=== PATIENT | female | born 1995 | race Caucasian/White ===

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

== ENCOUNTER 2017-01-03 15:40 | Outpatient (CLI) | payer MEDICAID ==
[2017-01-03 16:17] LABS: APPEARANCE,URINE SLIGHTLY-CLOUDY; BILIRUBIN,URINE NEGATIVE (NEGATIVE); GLUCOSE, URINE NEGATIVE (NEGATIVE); KETONES,URINE NEGATIVE (NEGATIVE); LEUKOCYTE ESTERASE,URINE NEGATIVE (NEGATIVE); NITRITE,URINE NEGATIVE (NEGATIVE); PROTEIN,URINE NEGATIVE (NEGATIVE); URINE SPECIFIC GRAVITY 1.004; UROBILINOGEN,URINE NEGATIVE mg/dL (<2.0)
[2017-01-03 16:23] LABS: AMNISURE (ROM) NEGATIVE (NEGATIVE)
[2017-01-03 16:32] LABS: URINE BARBITURATES SCREEN NEGATIVE; URINE METHADONE SCREEN NEGATIVE; URINE OPIATES LOW NEGATIVE; URINE PHENCYCLIDINE SCREEN NEGATIVE
== END 2017-01-03 17:00 | disposition home or self-care (01) ==
LOC: LC 15:40
PROVIDERS: ATTEND Obstetrics & Gynecology
PROC: 4A1HXCZ Monitoring of Products of Conception, Cardiac Rate, External Approach (ICD-10-PCS; principal; 2017-01-03)
DX: O47.1 False labor at or after 37 completed weeks of gestation (principal); Z3A.37 37 weeks gestation of pregnancy
CPT/HCPCS: 80307; 81005; 84112

== ENCOUNTER 2017-01-06 17:38 | Outpatient (CLI) | payer MEDICAID | END 2017-01-06 18:28 | disposition home or self-care (01) | LOC: LC 17:38 | PROVIDERS: ATTEND Obstetrics & Gynecology | PROC: 4A1HXCZ Monitoring of Products of Conception, Cardiac Rate, External Approach (ICD-10-PCS; principal; 2017-01-06) | DX: O47.1 False labor at or after 37 completed weeks of gestation (principal); Z3A.37 37 weeks gestation of pregnancy | CPT/HCPCS: 59025 ==

== ENCOUNTER 2017-01-23 21:49 | Outpatient (CLI) | payer MEDICAID ==
[2017-01-23 22:18] LABS: APPEARANCE,URINE SLIGHTLY-CLOUDY; BILIRUBIN,URINE NEGATIVE (NEGATIVE); GLUCOSE, URINE NEGATIVE (NEGATIVE); KETONES,URINE NEGATIVE (NEGATIVE); LEUKOCYTE ESTERASE,URINE NEGATIVE (NEGATIVE); NITRITE,URINE NEGATIVE (NEGATIVE); PROTEIN,URINE NEGATIVE (NEGATIVE); URINE SPECIFIC GRAVITY 1.008; UROBILINOGEN,URINE NEGATIVE mg/dL (<2.0)
[2017-01-23 22:33] LABS: URINE BARBITURATES SCREEN NEGATIVE; URINE METHADONE SCREEN NEGATIVE; URINE OPIATES LOW NEGATIVE; URINE PHENCYCLIDINE SCREEN NEGATIVE
--- NOTE | 2017-01-24 03:11 | Non Stress Test Report ---
Non Stress Test Datetime Report Generated by CPN: 01/24/2017 03:11 DEMOGRAPHIC EGA NST: 40.1 INDICATION Indication for Study: Other Indication for Study (NST) Other: labor check URINE RESULTS Urine Protein, NST: Negative Urine Ketones - NST: Negative Urine Glucose - NST: Negative Urine Blood - NST: Negative MONITORING Monitor Explained: Monitor Explained; Test Explained; Patient Verbalized Understanding Time on Monitor: 01/23/2017 22:01 Time off Monitor: 01/23/2017 23:58 NST Duration: 117 NST INTERVENTIONS NST Interventions: PO Hydration; Other NST Interventions Other: popsicle Physician Notified NST: Dr. Britton BABY A Movement : Present (Annotations: Data stored by [facility] on behalf of user) Movement : Present Contraction Frequency : 1.5-8 FHR Baseline : 140 Accelerations : 15X15 Decelerations : None Variability : Moderate 6-25bpm NST Review: Meets Criteria for Reactive NST NST Review and Verified By : Stevie Tobar RN NST Results: Reactive NST REPORT Report Trigger: Send Report
== END 2017-01-24 00:16 | disposition home or self-care (01) ==
LOC: LC 21:49
PROVIDERS: ATTEND Student in an Organized Health Care Education/Training Program
PROC: 4A1HXCZ Monitoring of Products of Conception, Cardiac Rate, External Approach (ICD-10-PCS; principal; 2017-01-23)
DX: O48.0 Post-term pregnancy (principal); Z3A.40 40 weeks gestation of pregnancy
CPT/HCPCS: 59025; 80307; 81005

== ENCOUNTER 2017-01-24 03:10 | Inpatient (IN) | payer MEDICAID ==
[2017-01-24] MEDS ORDERED: PENICILLIN G POTASSIUM 5,000,000 UNIT in DEXTROSE 5%-WATER 100 ML IV ONE (03:22)
[2017-01-24] MEDS ORDERED: PENICILLIN G-K 5 MILLION UNIT VIAL ONE ×3 (03:23→11:36)
[2017-01-24 03:58] LABS: HEMATOCRIT 33.8 % (36.0-47.0); HEMOGLOBIN 11.8 g/dL (12.0-15.5); HGB HCT DIFFERENCE 1.6; MEAN CORPUSCULAR HEMOGLOBIN 30.8 pg (27.0-33.4); MEAN CORPUSCULAR HGB CONC 34.9 g/dL (32.0-36.0); MEAN CORPUSCULAR VOLUME 88 fl (80-97); RED BLOOD COUNT 3.84 10^6/uL (3.72-5.28); RED CELL DISTRIBUTION WIDTH 13.5 % (11.5-14.0)
[2017-01-24] MEDS: RINGERS SOLUTION,LACTATED 1,000 ML IV PRN ×3 (04:15→19:23)
[2017-01-24 04:19] LABS: BASOPHILS % (MANUAL) 1 % (0-2); EOSINOPHILS % (MANUAL) 0 % (0-6); LYMPHOCYTES % (MANUAL) 11 % (13-45); TOTAL CELLS COUNTED 100
[2017-01-24 04:21] LABS: PLATELET CLUMPS PRESENT; POIKILOCYTOSIS SLIGHT; POLYCHROMASIA SLIGHT
[2017-01-24] MEDS ORDERED: FENTANYL/BUPIVACAINE/NS/PF 200 MCG/100 ML RTUINJ EPI ONE (06:11)
[2017-01-24] MEDS ORDERED: EPHEDRINE SULFATE INJ 50 MG/1 ML AMPULE ONE (06:11)
[2017-01-24] MEDS ORDERED: PHENYLEPHRINE HCL INJ/PF 10 MG/1 ML SDV ONE (06:11)
[2017-01-24] MEDS ORDERED: FENTANYL CITRATE INJ/PF 100 MCG/2 ML AMPUL ONE (06:11)
[2017-01-24] MEDS ORDERED: BUPIVACAINE HCL 0.25 % INJ/PF (2.5 MG/1 ML) 30 ML VIAL ONE (06:12)
[2017-01-24] MEDS ORDERED: PENICILLIN G POTASSIUM 2,500,000 UNIT in DEXTROSE 5%-WATER 50 ML IV SCH (07:22)
[2017-01-24] MEDS ORDERED: OXYTOCIN/NORMAL SALINE 1,000 ML IV PRN ×3 (07:54→17:39)
[2017-01-24] MEDS ORDERED: LIDOCAINE 1% INJ-PF (10 MG/ML) 30 ML SDV INJ ONE (07:56)
[2017-01-24] MEDS ORDERED: MISOPROSTOL 0.2 MG TABLET PR ONE (07:57)
[2017-01-24] MEDS ORDERED: LIDOCAINE 1% INJ-PF (10 MG/ML) 30 ML SDV INJ PRN (07:58)
[2017-01-24] MEDS ORDERED: MISOPROSTOL 0.2 MG TABLET PR PRN (07:58)
[2017-01-24] MEDS ORDERED: OXYTOCIN/NORMAL SALINE 20 UNIT/1,000 ML RTUINJ ONE ×2 (09:00→16:28)
[2017-01-24] MEDS: PENICILLIN G POTASSIUM 2,500,000 UNIT in DEXTROSE 5%-WATER 50 ML IV SCH ×3 (09:03→18:22)
[2017-01-24] MEDS ORDERED: MAGNESIUM SULFATE 0 GM/0 ML RTUPB IV ONE (12:21)
[2017-01-24] MEDS ORDERED: BETAMET ACET/BETAMET NA INJ 6 MG/1 ML ONE (12:27)
[2017-01-24] MEDS ORDERED: MISOPROSTOL 0.2 MG TABLET ONE (12:41)
[2017-01-24] MEDS ORDERED: LIDOCAINE 1% INJ-PF (10 MG/ML) 30 ML SDV ONE (12:41)
[2017-01-24] MEDS ORDERED: CEFAZOLIN 2 GM/D5W RTU 2 GM/50 ML RTUPB IV ONE (16:05)
[2017-01-24] MEDS ORDERED: CITRIC ACID/SODIUM CITRATE ORAL SOLN 15 ML UDCUP ONE (16:05)
[2017-01-24] MEDS ORDERED: CITRIC ACID/SODIUM CITRATE ORAL SOLN 15 ML UDCUP PO ONE (16:07)
[2017-01-24] MEDS ORDERED: CEFAZOLIN 2 GM/D5W RTU 50 ML IV ONE (16:07)
[2017-01-24] MEDS ORDERED: LIDOCAINE 2%/EPINEPHRINE INJ 20 ML VIAL ONE (16:09)
[2017-01-24] MEDS ORDERED: SODIUM BICARBONATE 8.4% INJ 50 MEQ/50 ML DISP.SYRIN ONE (16:14)
[2017-01-24] MEDS ORDERED: OXYTOCIN 10 UNIT/ML VIAL ONE (16:28)
[2017-01-24] MEDS ORDERED: MIDAZOLAM 2 MG/2 ML INJ ONE (16:28)
[2017-01-24] MEDS ORDERED: MORPHINE SULFATE 10 MG/ML INJ ONE (16:29)
[2017-01-24] MEDS ORDERED: MEASLES,MUMPS&RUBELLA VACC/PF 0.5 ML VIAL SUBCUT PRN (17:39)
[2017-01-24] MEDS ORDERED: SIMETHICONE 80 MG TAB.CHEW PO PRN (17:39)
[2017-01-24] MEDS ORDERED: ACETAMINOPHEN 100 ML IV PRN (17:39)
[2017-01-24] MEDS ORDERED: OXYCODONE-ACETAMINOPHEN 5-325 MG TABLET PO PRN (17:39)
[2017-01-24] MEDS ORDERED: MORPHINE SULFATE 10 MG/ML INJ IV PRN (17:39)
[2017-01-24] MEDS ORDERED: ACETAMINOPHEN 325 MG TABLET PO PRN (17:39)
[2017-01-24] MEDS ORDERED: PROMETHAZINE HCL INJ 25 MG/1 ML VIAL IV PRN (17:39)
--- NOTE | 2017-01-24 18:09 | OPERATIVE REPORT E ---
Operative Report NAME: MINI SQUIRES : 1995 AGE: 21Y DATE OF SURGERY: 01/24/2017 ROOM: LR200 PREOPERATIVE DIAGNOSIS: 1. Intrauterine at 40 weeks 2 days. 2. Failure to descend. POSTOPERATIVE DIAGNOSIS: 1. Intrauterine at 40 weeks 2 days. 2. Failure to descend. OPERATION: Low transverse hysterotomy section SURGEON: KEL ARORA M.D. ANESTHESIA: Dr. Montemayor with epidural. FINDINGS: Female in cephalic presentation with Apgars of 9 at one minute and 9 at five minutes, weight 7 pounds 14 ounces. Vaginal hand required for delivery. COMPLICATIONS: None. ESTIMATED BLOOD LOSS: 700 mL. SPECIMENS REMOVED: None. PROCEDURE: The patient was taken to the operating room, prepared and draped in a normal sterile fashion in supine position with a leftward tilt. A transverse skin incision was made with a scalpel and carried through to underlying layer of fascia with the same scalpel. The fascia was excised in the midline and extended laterally with Mayos. The rectus muscle and peritoneum were divided bluntly with good visualization of the bladder and the uterus. The bladder blade was inserted, and the hysterotomy was nicked with a scalpel and extended laterally with surgeon finger fracture. Attempt to deliver the baby at that point was unsuccessful so vaginal hand was requested and performed. This facilitated lifting the baby back into the fundus of the uterus; however, the fetus was still unable to be delivered despite adequate pressure. Therefore, a Kiwi vacuum was applied x1, and this facilitated delivery of the infant's head. The rest of the was then delivered without difficulty. The nose and mouth were suctioned with a suction bulb, and the cord was clamped and cut, and the infant was handed off to awaiting pediatricians. The cord blood was collected, and the placenta was removed manually. The uterus was exteriorized, cleared of clots and debris. The hysterotomy was closed with 0 Monocryl in a running locked fashion. A second layer of the same suture was used to imbricate to insure hemostasis. The uterus was then returned to the abdomen, and the peritoneal cavity was cleared of clots and debris. The rectus muscle and peritoneum were reapproximated with mattress stitch of 2-0 chromic. The fascia was then closed with 0 Vicryl. The subcutaneous layer was closed with plain catgut, and the skin was closed with 4-0 Vicryl. The patient tolerated the procedure well. Sponge, lap, and needle counts were correct x2. The patient was taken to recovery in stable condition. DICTATING PHYSICIAN: KEL ARORA M.D. [id number] PHY#: [id number] ID: [id number] JOB#: [id number] ACCT: [id number] cc:KEL ARORA M.D. > MTDD
[2017-01-24] MEDS: IBUPROFEN 800 MG TABLET PO SCH ×2 (18:22→23:27)
[2017-01-24] MEDS: DOCUSATE SODIUM 100 MG CAPSULE PO SCH (18:22)
[2017-01-24] MEDS ORDERED: ACETAMINOPHEN 100 ML IV ONE (18:36)
--- NOTE | 2017-01-24 18:55 | Delivery Summary ---
Del Sum A-C Datetime Report Generated by CPN: 01/24/2017 18:54 DELIVERY PERSONNEL DELIVERY PERSONNEL: [id number] Delivery Doctor:: Tammy Wolfe MD Anesthesiologist:: Carol Montemayor MD INTERIOR DESIGN TEACHER:: José Miguel Johnson CRNA Labor and Delivery Nurse:: Luz Elena Sanchez RNsilverlight developer Nurse:: Armida Angulo RN Neonatal Nurse Practitioner:: ALYSHA Ott Nursery Nurse:: Joanie oDzier RN Injection Specialist/GERIATRICIAN: Nadege Juan GINNING OPERATOR Injection Specialist/GERIATRICIAN: Tanner Ríos GINNING OPERATOR MATERNAL INFORMATION Delivery Anesthesia: Epidural Medications After Delivery: Pitocin Drip 20 Units/1000ml NSS Estimated Blood Loss (ml): 500 Maternal Complications: None LABOR SUMMARY EDC: 01/22/2017 00:00 No. Babies in Womb: 1 Attempted: No Labor Anesthesia: Epidural LABOR INFORMATION Reason for Induction: Not Applicable Onset of Labor: 01/24/2017 03:00 Complete Dilatation: 01/24/2017 13:13 Oxytocin: Augmentation Group B Beta Strep: Positive Antibiotics # of Doses: 3 Antibiotics Time of Last Dose: 1200 Name of Antibiotic Given: PCN Steroids Given: None Reason Steroids Not Administered: Not Applicable MEMBRANES Membranes Rupture Method: Spontaneous Rupture of Membranes: 01/24/2017 03:00 Length of Rupture (hr): 13.85 Amniotic Fluid Color: Clear Amniotic Fluid Amount: Moderate Amniotic Fluid Odor: Normal STAGES OF LABOR Stage 1 hr: 10 Stage 1 min: 13 Stage 2 hr: 3 Stage 2 min: 38 Stage 3 hr: 0 Stage 3 min: 1 Total Time in Labor hr: 13 Total Time in Labor min: 52 CSECTION DELIVERY Primary Indication: Arrest of Descent CSection Urgency: Non-Scheduled CSection Incidence: Primary Labor: Labor Elective: Nonelective CSection Incision: Lower Uterine Transverse BABY A INFORMATION Infant Delivery Date/Time: 01/24/2017 16:51 Method of Delivery: Born in Route : No : N/A Forceps: N/A Vacuum Extraction: Successful Shoulder Dystocia : No PRESENTATION/POSITION BABY A Presentation: Cephalic Cephalic Presentation: Vertex Vertex Position: Right Occipital Posterior Breech Presentation: N/A PLACENTA INFORMATION BABY A Placenta Delivery Time : 01/24/2017 16:52 Placenta Method of Delivery: Spontaneous Placenta Status: Delivered SCORES BABY A Heart Rate 1 min: >100 bpm Resp Effort 1 min: Good Cry Reflex Irritability 1 min: Cough or Sneeze or Pulls Away Muscle Tone 1 min: Active Motion Color 1 min: Body [place], Extremities Blue Resuscitation Effort 1 min: Tactile Stimulation SCORE 1 MIN: 9 Heart Rate 5 min: >100 bpm Resp Effort 5 min: Good Cry Reflex Irritability 5 min: Cough or Sneeze or Pulls Away Muscle Tone 5 min: Active Motion Color 5 min: Body [place], Extremities Blue Resuscitation Effort 5 min: Tactile Stimulation SCORE 5 MIN: 9 INFORMATION BABY A Gestational Age at Delivery: 40.2 Gestational Status: Full Term- 39- 40.6 Weeks Infant Outcome : Liveborn Condition : Stable Sex: Female IDENTIFICATION BABY A Infant Verification Date/Time: 01/24/2017 16:47 ID Band Number: [id number] Mother's Name Verified: Yes RN Verifying Infant: Drew Mai, RN Additional Verifying Personnel: Madeline Sanchez RN WEIGHT/LENGTH BABY A Infant Birthweight (gm): 3565 Weight (lb): 7 Weight (oz): 14 Infant Length (in): 20.50 Length (cm): 52.07 CORD INFORMATION BABY A No. Cord Vessels: 3 Nuchal Cord : N/A Cord Blood Taken: Yes-For Eval (Mom's Blood Type - or O+) Suction: Mouth; Nose ASSESSMENT BABY A Complications: None Physical Findings at Delivery: Within Normal Limits; Molding of the Head Infant Respirations: Appears Normal Skin to Skin: Yes Pet Nutrition Specialist/ALS Called : No Care By: Cat Dozier RN _ S [place] DIRECTOR SALES SUPPORT Transferred To: Nursery BABY B INFORMATION : N/A
--- NOTE | 2017-01-24 20:03 | Admission Physical ---
Datetime Report Generated by CPN: 01/24/2017 20:03 CURRENT ADMISSION Chief Complaint: Suspected Ruptured Membranes Admit Plan: Admit to Unit; Initiate Labor Induction Protocol ALLERGIES Medication Allergies: No Medication Allergies: No Known Drug Allergies (01/24/2017); milk (01/24/2017) Medication Allergies: No Known Drug Allergies (10/01/2016); milk (10/01/2016) Latex: No Latex Allergies Food Allergies: None Environmental Allergies: None OBSTETRICAL HISTORY EDC: 01/22/2017 00:00 : 1 Para: 0 Term: 0 : 0 SAB: 0 IAB: 0 Ectopic: 0 Livin Cesareans: 0 VBACs: 0 Multiple Births: 0 Gestational Diabetes: No Rh Sensitization: No Incompetent Cervix: No SANDY: No Infertility: No ART Treatment: No Uterine Anomaly: No IUGR: No Hx Previous C/S: No Macrosomia: No Hx Loss/Stillborn: No PIH: No Hx : No Placenta Previa/Abruption: No Depression/PP Depression: No PTL/PROM: No Post Hemorrhage: No Current Procedures: Ultrasound; NST Obstetrical History Comments: G1 - current; Polyhydramnios SEE RECORDS Alcohol: No Marijuana : No Cocaine: No Other Illicit Drugs: No Cigarettes: Current Everyday Smoker. [id number] Cigarette Frequency: 5 - 10 per day Advised to Stop: Yes MEDICAL HISTORY Diabetes: No Blood Transfusion: No Pulmonary Disease (Asthma, TB): No Breast Disease: No Hypertension: No Public School Teacher Surgery: No Heart Disease: No Hosp/Surgery: Yes Autoimmune Disorder: No Anesthetic Complications: No Kidney Disease: No Abnormal Pap Smear: No Neuro/Epilepsy: No Psychiatric Disorders: No Other Medical Diseases: No Hepatitis/Liver Disease: No Significant Family History: No Varicosities/Phlebitis: No Trauma/Violence : No Thyroid Dysfunction: No Medical History Comments: ovarian cysts, dislocated shoulder INFECTIOUS HISTORY Gonorrhea: No Genital Herpes: No Chlamydia: No Tuberculosis: No Syphilis: No Hepatitis: No HIV/AIDS Exposure: No Rash or Viral Illness: No HPV: No Infectious History Comments: denies PHYSICAL EXAM General: Normal HEENT: Normal Neurologic: Normal Thyroid: Normal Heart: Normal Lungs: Normal Breast: Deferred Back: Normal Abdomen: Normal Genitourinary Exam: Normal Extremities: Normal DTRs: Normal Pelvic Type: Adequate Vital Signs: Reviewed; Within Normal Limits VAGINAL EXAM Dilatation: 1 Effacement: 25 Station: -3 MEMBRANES Pooling: Positive Ferning Results: Positive Membranes: Ruptured Amniotic Fluid Color: Clear FETUS A EGA: 40.2 FHR- Baseline: 120 Accelerations: 15X15 Decelerations: None Presentation: Vertex Admit Comment: 21yo at 40+2ega presents for PROM at 0300 this am. Clear fluid. GBS pos. c/b polyhydramnios and smoker. She is Rh negative. PCN for GBS prophy. Plan for pitocin for IOL - now /-2. Epidural upon pt request. AnticiapteSVD. EFW 7.5#. Vtx on bedside US. PLANS FOR LABOR AND DELIVERY Labor and Delivery: None Pain Management: Epidural Feeding Preference: Breast Benefit of Breast Feed Discussed: Yes Circumcision: N/A INFORMED CONSENT Informed Consent Obtained: Vaginal Delivery; Induction of Labor; Risks, Benefits and Alternatives Discussed Signature: with User ID: [email or web address]
[2017-01-24] MEDS: KETOROLAC TROMETHAMINE INJ/PF 30 MG/1 ML SDV IV SCH (21:12)
[2017-01-24] MEDS: OXYCODONE-ACETAMINOPHEN 5-325 MG TABLET PO PRN (23:16)
[2017-01-25] MEDS: RINGERS SOLUTION,LACTATED 1,000 ML IV PRN (02:07)
[2017-01-25] MEDS: IBUPROFEN 800 MG TABLET PO SCH ×2 (02:12→21:02)
[2017-01-25] MEDS: KETOROLAC TROMETHAMINE INJ/PF 30 MG/1 ML SDV IV SCH ×2 (05:27→14:56)
[2017-01-25 06:41] LABS: HEMATOCRIT 25.5 % (36.0-47.0); HGB HCT DIFFERENCE 0.3; MEAN CORPUSCULAR HEMOGLOBIN 30.7 pg (27.0-33.4); MEAN CORPUSCULAR HGB CONC 33.7 g/dL (32.0-36.0); MEAN CORPUSCULAR VOLUME 91 fl (80-97); RED BLOOD COUNT 2.79 10^6/uL (3.72-5.28); RED CELL DISTRIBUTION WIDTH 14.1 % (11.5-14.0); WHITE BLOOD COUNT 20.4 10^3/uL (4.0-10.5)
[2017-01-25 07:21] LABS: HEMOGLOBIN 8.6 g/dL (12.0-15.5)
[2017-01-25] MEDS: DOCUSATE SODIUM 100 MG CAPSULE PO SCH ×2 (09:12→19:21)
[2017-01-25] MEDS: PRENATAL VITAMIN W-O CA NO5/FE FUMARATE/FA CAPSULE PO SCH (09:13)
[2017-01-25] MEDS: OXYCODONE-ACETAMINOPHEN 5-325 MG TABLET PO PRN ×2 (10:50→22:54)
[2017-01-26] MEDS: IBUPROFEN 800 MG TABLET PO SCH ×2 (01:58→08:15)
--- NOTE | 2017-01-26 08:53 | PDOC PROGRESS REPORT ---
Subjective-OB Subjective: Post Delivery Day: 21 year old. Denies any needs at this time. Ready to go home. Physical Exam (OB) Vital Signs: Temp Pulse Resp BP Pulse Ox 97.8 F 84 20 101/62 99 01/26/17 07:24 01/26/17 07:24 01/26/17 07:24 01/26/17 07:24 01/26/17 07:24 Intake & Output 01/25/17 01/26/17 01/27/17 06:59 06:59 06:59 Intake Total 1500 675 Output Total 1150 950 Balance 350 -275 - PIH/Pre-Eclampsia Clonus: Negative - Dressing Removed: No Incision: Dressing - Lochia Lochia Amount: Scant < 10 ml Lochia Color: Rubra/Red - Abdomen Description: Tender, Soft, Round Hernia Present: No Bowel Sounds: Normoactive Flatus Presence: Present Stool: No Fundal Description: Firm, Midline Fundal Height: u/u - u/2 Objective-Diagnostic Laboratory: 01/25/17 06:22 01/25/17 06:22 Blood Type A NEGATIVE
--- NOTE | 2017-01-26 09:00 | PDOC DISCHARGE SUMMARY ---
Final Diagnosis Discharge Date: 01/26/17 - Final Diagnosis (1) Arrest of descent, delivered, current hospitalization Is this a current diagnosis for this admission?: Yes (2) Delivery by emergency caesarean section Is this a current diagnosis for this admission?: Yes (3) Positive GBS test Is this a current diagnosis for this admission?: Yes (4) Is this a current diagnosis for this admission?: Yes Discharge Data - Discharge Medication Home Medications: [id number]/Iron Fumarate/FA/Dss [ 19 Tablet] 1 tab PO DAILY 01/03/17 Docusate Sodium [Colace 100 mg Capsule] 100 mg PO BID #30 capsule 01/26/17 Ferrous Sulfate 325 mg PO BID #60 tablet. 01/26/17 Ibuprofen [Motrin 800 mg Tablet] 800 mg PO Q6H #30 tablet 01/26/17 Oxycodone HCl/Acetaminophen [Percocet 5-325 mg Tablet] 1 tab PO Q4HP PRN #20 tablet 01/26/17 Gestational Age: 40.2 wks Reason(s) for Admission: Onset of Labor Procedures: NST, Ultrasound Intrapartum Procedure(s): : Low Cervical, Transverse - Data Baby 1 Female at 1 minute: 9 at 5 minutes: 9 Weight: 3.572 kg Home with Mother: Yes Complications: No - Diagnosis Test Laboratory: Temp Pulse Resp BP Pulse Ox 97.8 F 84 20 101/62 99 01/26/17 07:24 01/26/17 07:24 01/26/17 07:24 01/26/17 07:24 01/26/17 07:24 01/24/17 01/25/17 03:40 06:22 RBC 3.84 2.79 L Hgb 11.8 L 8.6 L D Hct 33.8 L 25.5 L - Discharge information/Instructions Discharge Activity: Activity As Tolerated, Balance Activity w/Rest, Pelvic Rest , Slowly Increase Activity, No tub bath Discharge Diet: Regular Disposition: HOME, SELF-CARE Follow up with: [facility] in: 1, Weeks
[2017-01-26] MEDS: PRENATAL VITAMIN W-O CA NO5/FE FUMARATE/FA CAPSULE PO SCH (09:53)
[2017-01-26] MEDS: DOCUSATE SODIUM 100 MG CAPSULE PO SCH (09:53)
[2017-01-26 10:27] VITALS: BP 116/75
[2017-01-26] MEDS ORDERED: DIPH/PERTUSS(ACELL)/TETANUS VAC/PF 0.5 ML SYR (>=10YO) IM ONE (12:00)
== END 2017-01-26 12:10 | disposition home or self-care (01) | DRG 765 ==
LOC: LC 03:10 → LR 03:25 → 2S 19:50
PROVIDERS: ADMIT Obstetrics & Gynecology; ATTEND Obstetrics & Gynecology
PROC: 10D00Z1 Extraction of Products of Conception, Low, Open Approach (ICD-10-PCS; principal; 2017-01-24)
PROC: 3E0234Z Introduction of Serum, Toxoid and Vaccine into Muscle, Percutaneous Approach (ICD-10-PCS; 2017-01-26)
PROC: 3E0234Z Introduction of Serum, Toxoid and Vaccine into Muscle, Percutaneous Approach (ICD-10-PCS; 2017-01-26)
DX: O62.1 Secondary uterine inertia (principal); O40.3XX0 Polyhydramnios, third trimester, not applicable or unspecified; O36.0930 Maternal care for other rhesus isoimmunization, third trimester, not applicable or unspecified; O99.334 Smoking (tobacco) complicating childbirth; O99.824 Streptococcus B carrier state complicating childbirth; F17.210 Nicotine dependence, cigarettes, uncomplicated; Z3A.40 40 weeks gestation of pregnancy; Z37.0 Single live birth; Z23 Encounter for immunization
CPT/HCPCS: 1961; 36415; 59025; 80307; 81005; 85025; 85027; 85461; 86592; 86850; 86900; 86901; 90715; 94799; J0131; J0690; J0702; J1885; J2250; J2270; J2370; J2540; J2590; J2790; J3010; J3475; J3490; J7120

== ENCOUNTER 2017-05-19 06:01 | Emergency (ER) | payer MEDICAID ==
[2017-05-19 06:27] VITALS: BP 123/74
[2017-05-19 06:32] LABS: APPEARANCE,URINE SLIGHTLY-CLOUDY; BILIRUBIN,URINE NEGATIVE (NEGATIVE); GLUCOSE, URINE NEGATIVE (NEGATIVE); KETONES,URINE NEGATIVE (NEGATIVE); LEUKOCYTE ESTERASE,URINE LARGE (NEGATIVE); NITRITE,URINE NEGATIVE (NEGATIVE); PROTEIN,URINE 30 mg/dL (NEGATIVE); URINE SPECIFIC GRAVITY 1.001; UROBILINOGEN,URINE NEGATIVE mg/dL (<2.0)
--- NOTE | 2017-05-19 07:03 | ER Document Report ---
ED GI/ - General Chief Complaint: Flank Pain Stated Complaint: LEFT SIDE PAIN Time Seen by Provider: 05/19/17 07:03 Mode of Arrival: Medic Information source: Patient Notes: 21 yo female in by EMS due to sharp intermittent left flank pain that radiates into supropubic area since wednesday morning. Flank Pain worse after urination. Frequency too. LMP 2nd week of may. PMH: C section. smoker. ruptured ovarian cyst. No vaginal discharge or odor. No hx kidney stones. UA shows 23 WBC , no RBC or bacteria. Culture and HCG ordered. No fever. No diarrhea or constipation. TRAVEL OUTSIDE OF THE [place] IN LAST 30 DAYS: No - Related Data Allergies/Adverse Reactions: No Known Drug Allergies Allergy (Verified 01/24/17 03:17) Past Medical History - General Information source: Patient - Social History Smoking Status: Current Every Day Smoker Chew tobacco use (# tins/day): No Frequency of alcohol use: Rare Drug Abuse: None Lives with: Spouse/Significant other Family History: None Renal/ Medical History: Reports: Hx Ovarian Cysts. Denies: Hx Kidney Stones, Hx Peritoneal Dialysis Other: G!P! Past Surgical History: Reports: Hx Section - Immunizations Immunizations up to date: Yes Hx Diphtheria, Pertussis, Tetanus Vaccination: Yes Review of Systems - Review of Systems Constitutional: No symptoms reported EENT: No symptoms reported Cardiovascular: No symptoms reported Respiratory: No symptoms reported Gastrointestinal: No symptoms reported Genitourinary: See HPI Female Genitourinary: No symptoms reported Musculoskeletal: No symptoms reported Skin: No symptoms reported Hematologic/Lymphatic: No symptoms reported Neurological/Psychological: No symptoms reported Physical Exam - Vital signs Vitals: Temp Pulse Resp BP Pulse Ox 98 F 75 18 123/74 100 05/19/17 06:25 05/19/17 06:25 05/19/17 06:25 05/19/17 06:25 05/19/17 06:25 Interpretation: Normal - General General appearance: Appears well, Alert - HEENT Head: Normocephalic, Atraumatic Eyes: Normal Conjunctiva: Normal Pupils: PERRL Mucous membranes: Dry Neck: Supple. No: Lymphadenopathy - Respiratory Respiratory status: No respiratory distress Chest status: Nontender Breath sounds: Normal Chest palpation: Normal - Cardiovascular Rhythm: Regular Heart sounds: Normal auscultation Murmur: No - Abdominal Inspection: Normal Distension: No distension Bowel sounds: Normal Tenderness: Tender - Left pelvis Organomegaly: No organomegaly - Back Back: Normal, Nontender. No: CVA tenderness - Extremities General upper extremity: Normal inspection, Nontender, Normal color, Normal ROM , Normal temperature General lower extremity: Normal inspection, Nontender, Normal color, Normal ROM , Normal temperature, Normal weight bearing. No: Irma's sign - Neurological Neuro grossly intact: Yes Cognition: Normal Orientation: AAOx4 Sylva Coma Scale Eye Opening: Spontaneous Ti Coma Scale Verbal: Oriented Sylva Coma Scale Motor: Obeys Commands Ti Coma Scale Total: 15 Speech: Normal Motor strength normal: LUE, RUE, LLE, RLE Sensory: Normal - Psychological Associated symptoms: Normal affect, Normal mood - Skin Skin Temperature: Warm Skin Moisture: Dry Skin Color: Normal Skin irregularity: negative: Rash Course - Re-evaluation Re-evalutation: 05/19/17 08:04 nurse went to set up the pelvic exam, pt and her spouse gone from the room. She understand the plan to do the pelvic exam and determine if she needs any imaging for pelvis or ureter. Nurse spoke with the pt, over the phone, she said she needed to get back to her 4 month old baby and her pain was gone so they left without telling anyone. 05/19/17 08:06 - Vital Signs Vital signs: Temp Pulse Resp BP Pulse Ox 98 F 75 18 123/74 100 05/19/17 06:25 05/19/17 06:25 05/19/17 06:25 05/19/17 06:25 05/19/17 06:25 - Laboratory Laboratory results interpreted by me: 05/19/17 06:05 Urine Protein 30 H Urine Blood MODERATE H Ur Leukocyte Esterase LARGE H Discharge - Discharge Clinical Impression: left flank pain Condition: Good Disposition: HOME, SELF-CARE
== END 2017-05-19 08:18 | disposition left against medical advice (07) ==
LOC: ER 06:01
DX: R10.9 Unspecified abdominal pain (principal); R35.0 Frequency of micturition; F17.200 Nicotine dependence, unspecified, uncomplicated
CPT/HCPCS: 81001; 81025; 87086; 87088; 87186; 99281

== ENCOUNTER 2017-05-21 00:54 | Emergency (ER) | payer MEDICAID ==
[2017-05-21] MEDS ORDERED: NORMAL SALINE 1000 ML 1,000 ML IV ONE (01:38)
[2017-05-21 02:03] LABS: ABSOLUTE EOSINOPHILS # (AUTO) 0.1 10^3/uL (0.0-0.6); ABSOLUTE LYMPHOCYTES (AUTO) 1.4 10^3/uL (0.5-4.7); ABSOLUTE MONOCYTES (AUTO) 1.4 10^3/uL (0.1-1.4); ABSOLUTE NEUT (AUTO) 12.1 10^3/uL (1.7-8.2); BASOPHILS % (AUTO) 0.3 % (0-2); EOSINOPHILS % (AUTO) 0.6 % (0-6); HEMOGLOBIN 12.9 g/dL (12.0-15.5); HGB HCT DIFFERENCE 0.7; LYMPHOCYTES % (AUTO) 9.1 % (13-45); MEAN CORPUSCULAR HEMOGLOBIN 30.2 pg (27.0-33.4); MEAN CORPUSCULAR HGB CONC 33.9 g/dL (32.0-36.0); MEAN CORPUSCULAR VOLUME 89 fl (80-97); MONOCYTES % (AUTO) 9.1 % (3-13); RED BLOOD COUNT 4.26 10^6/uL (3.72-5.28); RED CELL DISTRIBUTION WIDTH 13.8 % (11.5-14.0); SEGMENTED NEUTROPHILS % (AUTO) 80.9 % (42-78)
[2017-05-21 02:09] LABS: APPEARANCE,URINE SLIGHTLY-CLOUDY; BILIRUBIN,URINE NEGATIVE (NEGATIVE); GLUCOSE, URINE NEGATIVE (NEGATIVE); KETONES,URINE TRACE mg/dL (NEGATIVE); LEUKOCYTE ESTERASE,URINE SMALL (NEGATIVE); NITRITE,URINE NEGATIVE (NEGATIVE); PROTEIN,URINE 30 mg/dL (NEGATIVE); URINE SPECIFIC GRAVITY 1.004; UROBILINOGEN,URINE NEGATIVE mg/dL (<2.0)
[2017-05-21] MEDS ORDERED: KETOROLAC TROMETHAMINE INJ/PF 30 MG/1 ML SDV IV ONE (02:16)
[2017-05-21 02:18] LABS: ANION GAP 11 (5-19); BLOOD UREA NITROGEN 14 mg/dL (7-20); CALCIUM 9.7 mg/dL (8.4-10.2); CARBON DIOXIDE 26 mmol/L (22-30); CHLORIDE 102 mmol/L (98-107); CREATININE RESULT 0.73 mg/dL (0.52-1.25); GLUCOSE 86 mg/dL (75-110); POTASSIUM 4.1 mmol/L (3.6-5.0); SODIUM 138.6 mmol/L (137-145)
--- NOTE | 2017-05-21 02:24 | ER Document Report ---
ED General - General Chief Complaint: Possible Kidney Stone Stated Complaint: BACK PAIN Time Seen by Provider: 05/21/17 01:22 Notes: Patient is a 21-year-old female presents with complaint of left lower back pain. She has been worse over the last 3-4 days. No history of kidney infections. No history of kidney stones. She had some dysuria. No fevers. Some nausea. No vomiting. No diarrhea. No other complaints at this time. TRAVEL OUTSIDE OF THE [place] IN LAST 30 DAYS: No - Related Data Allergies/Adverse Reactions: hydrocodone Adverse Reaction (Verified 05/21/17 02:22) Nausea Past Medical History - Social History Smoking Status: Current Every Day Smoker Chew tobacco use (# tins/day): No Frequency of alcohol use: Rare Drug Abuse: None Family History: None Patient has suicidal ideation: No Patient has homicidal ideation: No Renal/ Medical History: Reports: Hx Ovarian Cysts. Denies: Hx Kidney Stones, Hx Peritoneal Dialysis Past Surgical History: Reports: Hx Section - Immunizations Immunizations up to date: Yes Hx Diphtheria, Pertussis, Tetanus Vaccination: Yes Review of Systems - Review of Systems Notes: My Normal Review Basic REVIEW OF SYSTEMS: CONSTITUTIONAL : Denies fever, chills, or sweats. Denies recent illness. RESPIRATORY: Denies cough, cold, or chest congestion. Denies shortness of breath, difficulty breathing, or wheezing. GASTROINTESTINAL: Denies abdominal pain. Denies nausea, vomiting, or diarrhea. Denies constipation. Last BM: GENITOURINARY: Some dysuria. FEMALE GENITOURINARY: Denies vaginal bleeding, abnormal or irregular periods. MUSCULOSKELETAL: Left lower back pain. SKIN: Denies rash or skin lesions. NEUROLOGICAL: Denies altered mental status or loss of consciousness. Denies headache. Denies weakness or paralysis or loss of use of either side. Denies problems with gait or speech. Denies sensory or motor loss. ALL OTHER SYSTEMS REVIEWED AND NEGATIVE. Physical Exam - Vital signs Vitals: Temp Pulse Resp BP Pulse Ox 99.3 F 111 H 20 118/75 97 05/21/17 01:10 05/21/17 01:10 05/21/17 01:10 05/21/17 01:10 05/21/17 01:10 - Notes Notes: General Appearance: Well nourished, alert, cooperative, no acute distress, moderate obvious discomfort. Vitals: reviewed, See vital signs table. Head: no swelling or tenderness to the head Eyes: PERRL, EOMI, Conjuctiva clear Mouth: No decreasd moisture Lungs: No wheezing, No rales, No rhonci, No accessory muscle use, good air exchange bilaterally. Heart: Normal rate, Regular rythm, No murmur, no rub Abdomen: Normal BS, soft, No rigidity, No abdominal tenderness, No guarding, no rebound, no abdominal masses, no organomegaly Back: Positive Ricardo's sign on left. Extremities: strength 5/5 in all extremities, good pulses in all extremities, no swelling or tenderness in the extremities, no edema. Skin: warm, dry, appropriate color, no rash Neuro: speech clear, oriented x 3, normal affect, responds appropriately to questions. Course - Re-evaluation Re-evalutation: 05/21/17 03:41 Patient is feeling much improved. I did give her a dose of Rocephin makes it appears that she has a kidney infection which would make sense with her clinical presentation. I did obtain ultrasound there is no hydronephrosis and no sign of kidney stone. Patient will be discharged home. She is encouraged to return to ER immediately if she has fevers, vomiting, or feels that she is worsening in any way. Patient agrees with plan will be discharged home. Dictation of this chart was performed using voice recognition software; therefore, there may be some unintended grammatical errors. - Vital Signs Vital signs: Temp Pulse Resp BP Pulse Ox 99.3 F 111 H 20 118/75 97 05/21/17 01:10 05/21/17 01:10 05/21/17 01:10 05/21/17 01:10 05/21/17 01:10 - Laboratory Result Diagrams: 05/21/17 01:40 05/21/17 01:40 Laboratory results interpreted by me: 05/21/17 05/21/17 01:40 01:40 WBC 15.0 H Seg Neutrophils % 80.9 H Lymphocytes % 9.1 L Absolute Neutrophils 12.1 H Urine Protein 30 H Urine Ketones TRACE H Urine Blood LARGE H Ur Leukocyte Esterase SMALL H Discharge - Discharge Clinical Impression: Pyelonephritis Condition: Good Disposition: HOME, SELF-CARE Additional Instructions: PYELONEPHRITIS: Your evaluation shows evidence of pyelonephritis. This is an infection in the kidney. Typical symptoms are fever, pain in the flank, pain on urination, and frequent urination. Many cases of pyelonephritis can be treated at home. Hospital care may be necessary for patients who are very ill, or elderly or . Pyelonephritis is treated with antibiotics. Be sure to take all the medication as prescribed. Drink plenty of liquids (about three quarts per day) . You may take acetaminophen for fever. You should feel significantly improved within two days. You should have a recheck of your urine in about one week to insure that the infection is gone. Return for a re-examination if your symptoms worsen in any way -- such as high fever, shaking chills, severe weakness or dizziness, severe pain, or inability to pass your urine. TORADOL INJECTION: You have been given an injection of ketorolac tromethamine (Toradol). This is an excellent, safe drug for pain control. It also has potent antiinflammatory action. You should have significant pain relief within about one hour. Toradol is not addicting and is non-sedating. It does not interfere with driving or work. Call or return if you develop itching, hives, shortness of breath, or rash. ANTIBIOTIC THERAPY: You have been given an antibiotic prescription. It's important that you take all the medication, unless instructed otherwise by your physician. Failure to complete the entire course can result in relapse of your condition. Common side effects of antibiotics include nausea, intestinal cramping, or diarrhea. Women may develop vaginal yeast infections, and babies can get yeast (thrush) in the mouth following the use of antibiotics. Contact your physician if you develop significant side effects from this medication. Allergy to this antibiotic can result in hives, wheezing, faintness, or itching. If symptoms of allergy occur, stop the medication and call the doctor. ROCEPHIN: You have been given an injection of an antibiotic called Rocephin ( ceftriaxone). Sometimes the injection must be combined with antibiotic pills. For some infections, such as an uncomplicated ear infection, Rocephin provides all the antibiotic that's needed. The antibiotic will be in your body for about two days. For serious infections, we usually repeat doses of Rocephin daily. Side effects are very unusual following a shot. Women may develop vaginal yeast infections, and babies can get yeast (thrush) in the mouth following the use of antibiotics. Contact your physician if you have symptoms with this medication. Allergy to this antibiotic can result in hives, wheezing, faintness, or itching. If symptoms of allergy occur, call the doctor at once. CEPHALEXIN: The antibiotic you've been prescribed is a member of the cephalosporin class. This type of antibiotic covers a wide variety of infections, including those of the skin, lungs, and urinary tract. It's useful for staph infections. This antibiotic is slightly similar to the penicillin family. In rare cases , a person who is allergic to penicillin will also be allergic to this medication. If you have had a severe allergic reaction to penicillin, and have not taken this antibiotic since that time, notify your doctor. Antibiotics which cover many germs ("broad spectrum" antibiotics) are more likely to cause diarrhea or "yeast" infections. Women prone to vaginal yeast problems may suffer an attack after taking this antibiotic. In infants, oral thrush (white spots "stuck" on the cheek) or yeast diaper rash may result. See your doctor if these problems occur. Call at once if you develop itching, hives , shortness of breath, or lightheadedness. FOLLOW-UP CARE: If you have been referred to a physician for follow-up care, call the physician s office for an appointment as you were instructed or within the next two days. If you experience worsening or a significant change in your symptoms, notify the physician immediately or return to the Emergency Department at any time for re-evaluation. Please return to ER immediately if you have fevers, recurrent vomiting, worsening pain, or feel that your symptoms are worsening. Please follow-up with your doctor in 2-3 days for reevaluation. Prescriptions: Cephalexin Monohydrate [Keflex 500 mg Capsule] 500 mg PO Q6H 5 Days capsule Forms: Return to Work
--- NOTE | 2017-05-21 02:47 | RADIOLOGY REPORT (SQ) ---
EXAM DESCRIPTION: U/S RETROPERITON (RENAL/AORTA) COMPLETED DATE/TIME: 05/21/2017 2:31 am REASON FOR STUDY: kidney infection COMPARISON: None. TECHNIQUE: Grayscale images acquired of the kidneys and bladder and recorded on PACS. Additional anders ected color Doppler images recorded. LIMITATIONS: None. FINDINGS: RIGHT KIDNEY: Measures 13 cm. Normal echogenicity. No hydronephrosis. No calcificatio ns. LEFT KIDNEY: Measures 11.2 cm. Normal echogenicity. No hydronephrosis. No calcifications. BLADDER: Bilateral ureteral jets visualized. IMPRESSION: No hydronephrosis or sonographic evidence for renal calculi. TECHNICAL DOCUMENTATION: JOB ID: [id number]- All Rights Reserved
[2017-05-21] MEDS ORDERED: CEFTRIAXONE INJ 1000 MG VIAL IV ONE (02:55)
[2017-05-21] MEDS ORDERED: CEFTRIAXONE 1 GM/D5W RTU 1 GM/50 ML RTUPB IV ONE (03:05)
[2017-05-21 03:57] VITALS: BP 108/56
== END 2017-05-21 03:55 | disposition home or self-care (01) ==
LOC: ER 00:54
DX: N12 Tubulo-interstitial nephritis, not specified as acute or chronic (principal); M54.5 Low back pain; R11.0 Nausea; R30.0 Dysuria; F17.200 Nicotine dependence, unspecified, uncomplicated
CPT/HCPCS: 99284; 96361; 96375; 96365; 36415; 87086; 84703; 85025; 87088; 80048; 81001; 87186; 76770; J1885; J7030; J0696